=== PATIENT | female | born 1965 | race African-American/Black ===

== ENCOUNTER 2025-04-29 20:43 | Inpatient (IN) | payer MEDICAID, OTHER ==
[~2025-04-29] VITALS: Ht 165.1 cm; Wt 68.0 kg
[2025-04-29 23:20] LABS: BASOPHILS % 0.6 % (0.0-2.0); EOSINOPHILS % 0.0 % (0.0-5.0); HEMATOCRIT. 37.9 % (36.0-48.0); HEMOGLOBIN. 12.2 g/dL (12.0-16.0); LYMPHOCYTES % 7.8 % (20.0-50.0); MONOCYTES % 4.6 % (2.0-8.0); NEUTROPHILS % 87.0 % (40.0-76.0); RED BLOOD CELL COUNT 3.69 mill/uL (4.2-5.4); RED CELL DISTRIBUTION WIDTH 14.8 % (11.6-14.6)
[2025-04-29 23:32] LABS: CREATININE 2.0 mg/dL (0.6-1.0); UREA NITROGEN BLOOD 23.0 mg/dL (9-23)
[2025-04-30] MEDS: ONDANSETRON HCL 4MG/2ML INJ IV ONE (00:24)
[2025-04-30] MEDS: MORPHINE SULFATE 4 MG/ML INJ (FOR IV/IM USE) IV ONE (00:25)
[2025-04-30 01:11] LABS: PLATELET 225 x1000/uL (130-400)
[2025-04-30 01:12] LABS: MEAN PLATELET VOLUME 8.5 fl (7.4-10.4)
[2025-04-30 01:28] LABS: INR 1.0
[2025-04-30] MEDS ORDERED: DOCUSATE SODIUM 100MG CAPSULE PO PRN (01:30)
[2025-04-30] MEDS ORDERED: CLONIDINE 0.1MG TABLET PO PRN (01:30)
[2025-04-30] MEDS ORDERED: ONDANSETRON HCL 4MG/2ML INJ IV PRN ×2 (01:30→18:15)
[2025-04-30] MEDS ORDERED: ACETAMINOPHEN 325MG TABLET PO PRN ×2 (01:30)
[2025-04-30] MEDS: SODIUM CHLORIDE 0.9% 1,000 ML IV ONE (02:04)
[2025-04-30] MEDS ORDERED: NALOXONE HCL 0.4MG/ML VIAL IV PRN (02:15)
[2025-04-30] MEDS: ACETAMINOPHEN 1000MG/100ML 100 ML IV SCH (02:20)
[2025-04-30] MEDS: DEXT 5%/0.9% NACL 1,000 ML IV ONE (02:31)
[2025-04-30] MEDS ORDERED: MORPHINE SULFATE 2 MG/ML INJ (NOT FOR IM USE) IV PRN (04:15)
[2025-04-30 05:27] LABS: BASOPHILS % 0.6 % (0.0-2.0); EOSINOPHILS % 0.1 % (0.0-5.0); HEMATOCRIT. 36.7 % (36.0-48.0); HEMOGLOBIN. 12.1 g/dL (12.0-16.0); LYMPHOCYTES % 14.0 % (20.0-50.0); MEAN PLATELET VOLUME 8.2 fl (7.4-10.4); MONOCYTES % 10.5 % (2.0-8.0); NEUTROPHILS % 74.8 % (40.0-76.0); PLATELET 249 x1000/uL (130-400); RED BLOOD CELL COUNT 3.68 mill/uL (4.2-5.4); RED CELL DISTRIBUTION WIDTH 14.3 % (11.6-14.6)
[2025-04-30 05:47] LABS: CREATININE 2.3 mg/dL (0.6-1.0)
[2025-04-30 05:48] LABS: UREA NITROGEN BLOOD 29 mg/dL (9-23)
[2025-04-30 05:49] LABS: ASPARTATE AMINOTRANSFERASE 40 IU/L (<34)
[2025-04-30 05:50] LABS: BILIRUBIN TOTAL 0.5 mg/dL (0.1-1.0); PHOSPHORUS 6.5 mg/dL (2.5-4.9); PROTEIN TOTAL 7.1 g/dL (6.0-8.3)
[2025-04-30 05:51] LABS: FOLIC ACID (FOLATE) SERUM 15.20 ng/mL (>5.38)
[2025-04-30 05:52] LABS: T4 FREE 0.89 ng/dL (0.89-1.76); VITAMIN B12 SERUM 357 pg/mL (211-911)
[2025-04-30 09:00] VITALS: BP 139/75; PULSE 83; RESP 18; TEMP 36.3624
[2025-04-30] MEDS: NICOTINE 14MG PATCH TD SCH (09:00)
[2025-04-30] MEDS ORDERED: ENOXAPARIN 30MG/0.3ML SYR SUBCUT SCH (09:00)
[2025-04-30] MEDS: FAMOTIDINE 20MG/2ML VIAL IV SCH (09:22)
[2025-04-30] MEDS: HYDROMORPHONE HCL/PF 2MG/ML INJ IV PRN (09:22)
[2025-04-30 12:00] VITALS: BP 141/64; PULSE 61; RESP 18; TEMP 36.4; O2SAT 97
[2025-04-30 16:00] VITALS: BP 137/68; PULSE 57; RESP 18; TEMP 36.1; O2SAT 100
[2025-04-30 17:14] VITALS: PULSE 96; RESP 16; O2SAT 96
[2025-04-30] MEDS: IPRATROPIUM/ALBUTEROL 0.5-3(2.5)MG/3ML NEB HHN PRN (17:14)
[2025-04-30] MEDS ORDERED: VANCOMYCIN HCL 1GM VIAL ONE (17:46)
[2025-04-30] MEDS ORDERED: POLYMYXIN B SULFATE 500000 UNITS/VIAL ONE (17:46)
[2025-04-30] MEDS ORDERED: LIDOCAINE HCL/EPINEPHRINE 1%-EPI 1:100,000 20ML VIAL ONE (17:47)
[2025-04-30] MEDS: MORPHINE SULFATE 10 MG/ML INJ (NOT FOR IM USE) IV NR (17:47)
[2025-04-30] MEDS ORDERED: HYDROMORPHONE HCL/PF 1MG/ML INJ IV PRN (18:15)
[2025-04-30] MEDS ORDERED: FENTANYL CITRATE/PF 50MCG/ML 2ML VIAL IV PRN (18:15)
[2025-04-30] MEDS ORDERED: PROPOFOL 10MG/ML 100ML 100 ML IV ONE (18:28)
[2025-04-30] MEDS ORDERED: ACETAMINOPHEN 1000MG/100ML 100 ML IV ONE (18:28)
[2025-04-30] MEDS ORDERED: BUPIVACAINE HCL/DEXTROSE/PF 0.75% 2ML AMP INJ ONE (18:30)
[2025-04-30] MEDS ORDERED: FENTANYL CITRATE/PF 50MCG/ML 2ML VIAL ONE (19:05)
[2025-04-30] MEDS ORDERED: ONDANSETRON HCL 4MG/2ML INJ ONE (19:06)
[2025-04-30] MEDS ORDERED: LIDOCAINE HCL 1% 10 MG/ML 10ML VIAL ONE (20:06)
[2025-04-30] MEDS ORDERED: HYDROCODONE/ACETAMINOPHEN 5/325MG TABLET PO PRN (20:15)
[2025-04-30] MEDS ORDERED: PHENYLEPHRINE HCL 10MG/ML 1ML IV ONE (20:21)
[2025-04-30] MEDS ORDERED: MIDAZOLAM HCL 2 MG/2 ML VIAL ONE ×2 (20:22→21:24)
[2025-04-30] MEDS ORDERED: TRANEXAMIC ACID 10 ML ONE (20:24)
[2025-04-30] MEDS ORDERED: DEXAMETHASONE 4MG/ML 1ML VIAL ONE (20:35)
[2025-04-30] MEDS ORDERED: CALCIUM CHLORIDE 1GM/10ML SYR IV ONE (20:45)
[2025-05-01] VITALS: BP 104/57; PULSE 68; RESP 17; TEMP 36.2; O2SAT 97
[2025-05-01] MEDS: ONDANSETRON HCL 4MG/2ML INJ IV PRN (00:38)
[2025-05-01] MEDS: CEFAZOLIN 1000MG PREMIX 50 ML IV SCH (00:39)
[2025-05-01] MEDS: HYDROMORPHONE HCL/PF 2MG/ML INJ IV PRN (00:39)
[2025-05-01 04:00] VITALS: BP 135/61; PULSE 60; RESP 19; TEMP 36.7; O2SAT 98
[2025-05-01] MEDS ORDERED: POLYMYXIN B SULFATE 500000 UNITS/VIAL ONE (06:38)
[2025-05-01 06:47] LABS: HEMATOCRIT. 37.0 % (36.0-48.0); HEMOGLOBIN. 12.1 g/dL (12.0-16.0); MEAN PLATELET VOLUME 8.8 fl (7.4-10.4); PLATELET 215 x1000/uL (130-400); RED BLOOD CELL COUNT 3.66 mill/uL (4.2-5.4); RED CELL DISTRIBUTION WIDTH 14.2 % (11.6-14.6)
[2025-05-01 07:03] LABS: PHOSPHORUS 4.8 mg/dL (2.5-4.9)
[2025-05-01 08:00] VITALS: BP 144/70; PULSE 81; RESP 18; TEMP 36.5; O2SAT 96
[2025-05-01] MEDS ORDERED: ENOXAPARIN 40MG/0.4ML SYR SUBCUT SCH (09:00)
[2025-05-01] MEDS: ENOXAPARIN 30MG/0.3ML SYR SUBCUT SCH (09:38)
[2025-05-01 12:00] VITALS: BP 130/49; PULSE 69; RESP 17; TEMP 36.8; O2SAT 98
[2025-05-01] MEDS: CETIRIZINE 10MG TABLET PO SCH (14:45)
[2025-05-01 15:31] LABS: CLARITY URINE CLEAR (CLEAR); COLOR URINE YELLOW (YELLOW); GLUCOSE URINE NEGATIVE (NEGATIVE); KETONES URINE TRACE (NEGATIVE); LEUKOCYTE ESTERASE URINE NEGATIVE (NEGATIVE); NITRITE URINE NEGATIVE (NEGATIVE); OCCULT BLOOD URINE NEGATIVE (NEGATIVE); PH URINE 5.5 (4.5-8.0); PROTEIN URINE 1+ (NEGATIVE); SPECIFIC GRAVITY URINE 1.029 (1.005-1.030); UROBILINOGEN URINE 0.2 E.U./dL (0.2-1.0)
[2025-05-01 15:42] LABS: *AMPHETAMINES SCREEN URINE NEGATIVE (NEGATIVE); *BARBITURATES SCREEN URINE NEGATIVE (NEGATIVE); *BENZODIAZEPINES SCREEN URINE PRESUMPTIVE POSITIVE (NEGATIVE); *COCAINE SCREEN URINE PRESUMPTIVE POSITIVE (NEGATIVE)
[2025-05-01 15:43] LABS: CANNABINOID URINE SCREEN NEGATIVE (NEGATIVE); ECSTASY MDMA SCREEN URINE NEGATIVE (NEGATIVE); METHADONE URINE SCREEN NEGATIVE (NEGATIVE); OPIATES URINE SCREEN PRESUMPTIVE POSITIVE (NEGATIVE); PHENCYCLIDINE URINE SCREEN NEGATIVE (NEGATIVE)
[2025-05-01 16:00] VITALS: BP 107/49; PULSE 67; RESP 17; TEMP 36.7; O2SAT 98
[2025-05-01 16:23] LABS: RBC URINE NONE SEEN /hpf (0-2); WBC URINE NONE SEEN /hpf (0-2)
[2025-05-01 16:24] LABS: BACTERIA URINE NONE SEEN; MUCUS URINE TRACE /lpf (< = 2+); SQUAMOUS EPITHELIAL CELL URINE RARE /lpf (RARE/1+)
[2025-05-01 16:46] LABS: TRIGLYCERIDE 187.0 mg/dL (0-150)
[2025-05-01 16:47] LABS: LDL CHOLESTEROL 201.0 mg/dL (5-100)
[2025-05-01] MEDS: THIAMINE HCL 100MG TABLET PO SCH (17:23)
[2025-05-01] MEDS: FOLIC ACID 1MG TABLET PO SCH (17:23)
[2025-05-01] MEDS: HYDROCODONE/ACETAMINOPHEN 5/325MG TABLET PO PRN (17:27)
[2025-05-01] MEDS: SODIUM CHLORIDE 0.9% 1,000 ML IV SCH (17:30)
[2025-05-01 20:00] VITALS: BP 111/60; PULSE 70; RESP 18; TEMP 37.2; O2SAT 100
[2025-05-01 21:22] LABS: LYMPHOCYTES % MANUAL 8.0 % (20.0-60.0); MONOCYTES % MANUAL 7.0 % (2.0-8.0); NEUTROPHILS % MANUAL 85.0 % (45.0-75.0); PLATELET ESTIMATE NORMAL
[2025-05-02 05:49] LABS: CREATININE 0.9 mg/dL (0.6-1.0)
[2025-05-02 05:50] LABS: PROTEIN TOTAL 6.6 g/dL (6.0-8.3); UREA NITROGEN BLOOD 19 mg/dL (9-23)
[2025-05-02 05:51] LABS: ASPARTATE AMINOTRANSFERASE 18 IU/L (<34)
[2025-05-02 05:52] LABS: BILIRUBIN DIRECT < 0.1 mg/dL (<=3.0); BILIRUBIN TOTAL 0.3 mg/dL (0.1-1.0); PHOSPHORUS 2.6 mg/dL (2.5-4.9)
[2025-05-02 05:54] LABS: BASOPHILS % 0.3 % (0.0-2.0); EOSINOPHILS % 0.9 % (0.0-5.0); HEMATOCRIT. 34.6 % (36.0-48.0); HEMOGLOBIN. 11.2 g/dL (12.0-16.0); LYMPHOCYTES % 10.3 % (20.0-50.0); MEAN PLATELET VOLUME 8.8 fl (7.4-10.4); MONOCYTES % 12.0 % (2.0-8.0); NEUTROPHILS % 76.5 % (40.0-76.0); PLATELET 195 x1000/uL (130-400); RED BLOOD CELL COUNT 3.40 mill/uL (4.2-5.4); RED CELL DISTRIBUTION WIDTH 14.2 % (11.6-14.6)
[2025-05-02 08:00] VITALS: BP 128/70; PULSE 93; RESP 20; TEMP 37; O2SAT 100
[2025-05-02 12:00] VITALS: BP 122/68; PULSE 79; RESP 18; TEMP 36.9; O2SAT 94
[2025-05-02 16:00] VITALS: BP 115/71; PULSE 99; RESP 18; TEMP 37.1; O2SAT 98
[2025-05-02] MEDS: CYANOCOBALAMIN 1000MCG/ML VIAL IM SCH (17:40)
[2025-05-02 20:00] VITALS: BP 116/73; PULSE 81; RESP 17; TEMP 36.4; O2SAT 100
[2025-05-02] MEDS: ATORVASTATIN CALCIUM 40MG TABLET PO SCH (21:07)
[2025-05-03] VITALS: BP_SYST 102; BP_SYST 128; BP_DIAS 63; BP_DIAS 70; PULSE 71; PULSE 82; RESP 18; RESP 20; TEMP 36.4; TEMP 36.7; O2SAT 97; O2SAT 99
[2025-05-03 04:00] VITALS: BP 102/63; PULSE 82; RESP 18; TEMP 36.4; O2SAT 99
[2025-05-03 05:42] LABS: BASOPHILS % 0.1 % (0.0-2.0); EOSINOPHILS % 2.4 % (0.0-5.0); HEMATOCRIT. 35.5 % (36.0-48.0); HEMOGLOBIN. 11.5 g/dL (12.0-16.0); LYMPHOCYTES % 14.8 % (20.0-50.0); MEAN PLATELET VOLUME 8.9 fl (7.4-10.4); MONOCYTES % 13.0 % (2.0-8.0); NEUTROPHILS % 69.7 % (40.0-76.0); PLATELET 221 x1000/uL (130-400); RED BLOOD CELL COUNT 3.51 mill/uL (4.2-5.4); RED CELL DISTRIBUTION WIDTH 14.3 % (11.6-14.6)
[2025-05-03 06:13] LABS: CREATININE 1.0 mg/dL (0.6-1.0)
[2025-05-03 06:14] LABS: UREA NITROGEN BLOOD 17 mg/dL (9-23)
[2025-05-03 06:16] LABS: PHOSPHORUS 2.4 mg/dL (2.5-4.9)
[2025-05-03 08:00] VITALS: BP 98/61; PULSE 79; RESP 18; TEMP 36.7; O2SAT 97
[2025-05-03] MEDS: SODIUM PHOSPHATE 15 MMOL in DEXT 5% WATER 245 ML IV SCH (09:55)
[2025-05-03 12:00] VITALS: BP 116/70; PULSE 82; RESP 18; TEMP 36.6; O2SAT 18
[2025-05-03 16:00] VITALS: BP 110/65; PULSE 82; RESP 17; TEMP 36.6; O2SAT 18
[2025-05-03 20:00] VITALS: BP 115/66; PULSE 98; RESP 17; TEMP 35.8; O2SAT 97
[2025-05-04 04:00] VITALS: BP 122/73; PULSE 107; RESP 17; TEMP 36.1; O2SAT 98
[2025-05-04 08:00] VITALS: BP 103/63; PULSE 72; RESP 18; TEMP 36.5; O2SAT 96
[2025-05-04 12:00] VITALS: BP 110/70; PULSE 81; RESP 18; TEMP 36.6; O2SAT 96
[2025-05-04 16:00] VITALS: BP 112/70; PULSE 74; RESP 18; TEMP 36.6; O2SAT 96
[2025-05-04 20:00] VITALS: BP 111/68; PULSE 91; RESP 18; TEMP 36.6; O2SAT 98
[2025-05-04 21:40] VITALS: BP 111/68; PULSE 91; RESP 18; TEMP 36.6; O2SAT 98
[2025-05-05] VITALS: BP 100/62; PULSE 93; RESP 18; TEMP 36.7; O2SAT 98
[2025-05-05 04:00] VITALS: BP 107/63; PULSE 94; RESP 18; TEMP 36.6; O2SAT 97
[2025-05-05 08:00] VITALS: BP 111/66; PULSE 89; RESP 20; TEMP 36.3; O2SAT 97
[2025-05-05 12:00] VITALS: BP 108/68; PULSE 86; RESP 20; TEMP 36.4; O2SAT 99
[2025-05-05 16:00] VITALS: BP 95/55; PULSE 83; RESP 20; TEMP 36.3; O2SAT 100
[2025-05-05 20:00] VITALS: BP 109/63; PULSE 60; RESP 17; TEMP 36.2; O2SAT 98
[2025-05-05] MEDS: QUETIAPINE FUMARATE 200MG TABLET PO SCH (20:45)
[2025-05-05] MEDS: HYDROCODONE/ACETAMINOPHEN 10/325MG TABLET PO PRN (21:45)
[2025-05-06] VITALS: BP 138/65; PULSE 77; RESP 20; TEMP 36.3; O2SAT 100
[2025-05-06 08:00] VITALS: BP 106/62; PULSE 84; RESP 17; TEMP 36.5; O2SAT 98
[2025-05-06 09:22] LABS: BASOPHILS % 0.4 % (0.0-2.0); EOSINOPHILS % 4.0 % (0.0-5.0); HEMATOCRIT. 30.3 % (36.0-48.0); HEMOGLOBIN. 9.7 g/dL (12.0-16.0); LYMPHOCYTES % 19.7 % (20.0-50.0); MEAN PLATELET VOLUME 8.2 fl (7.4-10.4); MONOCYTES % 14.2 % (2.0-8.0); NEUTROPHILS % 61.7 % (40.0-76.0); PLATELET 294 x1000/uL (130-400); RED BLOOD CELL COUNT 2.98 mill/uL (4.2-5.4); RED CELL DISTRIBUTION WIDTH 14.0 % (11.6-14.6)
[2025-05-06 09:43] LABS: CREATININE 0.7 mg/dL (0.6-1.0)
[2025-05-06 09:44] LABS: UREA NITROGEN BLOOD 14 mg/dL (9-23)
[2025-05-06 09:46] LABS: PHOSPHORUS 3.5 mg/dL (2.5-4.9)
[2025-05-06 12:00] VITALS: BP 115/69; PULSE 79; RESP 18; TEMP 36.6; O2SAT 100
[2025-05-06 16:00] VITALS: BP 123/71; PULSE 88; RESP 17; TEMP 36.7; O2SAT 100
[2025-05-06 20:00] VITALS: BP 142/84; PULSE 99; RESP 18; TEMP 36.6; O2SAT 98
[2025-05-07] VITALS (7 sets, daily range): BP systolic 95–133; BP diastolic 52–76; PULSE 72–105; RESP 18–19; TEMP 36.3–36.9; O2SAT 95–99
[2025-05-08] VITALS: BP 121/69; PULSE 86; RESP 18; TEMP 36.6; O2SAT 100
[2025-05-08 04:00] VITALS: BP 115/69; PULSE 97; RESP 18; TEMP 36.7; O2SAT 100
[2025-05-08 08:00] VITALS: BP 127/76; PULSE 89; RESP 18; TEMP 36.4; O2SAT 100
[2025-05-08 12:00] VITALS: BP 121/73; PULSE 90; RESP 18; TEMP 36.6; O2SAT 98
[2025-05-08] MEDS ORDERED: NALOXONE HCL 0.4MG/ML VIAL IV PRN (13:45)
[2025-05-08 16:00] VITALS: BP 130/64; PULSE 83; RESP 21; TEMP 36.8; O2SAT 100
[2025-05-08 20:00] VITALS: BP 130/79; PULSE 100; RESP 18; TEMP 36.4; O2SAT 99
[2025-05-09 04:00] VITALS: BP 119/78; PULSE 99; RESP 20; TEMP 36.4; O2SAT 97
[2025-05-09 08:00] VITALS: BP 122/72; PULSE 90; RESP 18; TEMP 36.6; O2SAT 97
[2025-05-09] MEDS: KETOROLAC 15MG/ML VIAL IV PRN (11:20)
[2025-05-09 12:00] VITALS: BP 107/60; PULSE 82; RESP 18; TEMP 37.6; O2SAT 96
[2025-05-09 16:00] VITALS: BP 123/72; PULSE 91; RESP 18; TEMP 37; O2SAT 95
[2025-05-09 20:00] VITALS: BP 98/57; PULSE 89; RESP 16; TEMP 36.9; O2SAT 96
[2025-05-09] MEDS: GUAIFENESIN 200MG/10ML SUGAR FREE UDC PO PRN (22:11)
[2025-05-10] VITALS: BP 113/67; PULSE 88; RESP 15; TEMP 36.6; O2SAT 95
[2025-05-10 04:00] VITALS: BP 108/70; PULSE 80; RESP 16; TEMP 36.7; O2SAT 97
[2025-05-10 08:00] VITALS: BP 98/61; PULSE 84; RESP 16; TEMP 36.5; O2SAT 96
[2025-05-10] MEDS ORDERED: FOLI-43 PO (11:28)
[2025-05-10] MEDS ORDERED: THIA100T72 PO (11:28)
[2025-05-10] MEDS ORDERED: QUET200T30 PO (11:28)
[2025-05-10] MEDS ORDERED: LIP40 PO (11:28)
[2025-05-10 12:00] VITALS: BP 113/69; PULSE 86; RESP 16; TEMP 36.5; O2SAT 96
[2025-05-10 12:26] VITALS: BP 113/69; PULSE 86; RESP 18; TEMP 97.7
[2025-05-10 16:00] VITALS: BP 110/73; PULSE 85; RESP 16; TEMP 36.6; O2SAT 96
== END 2025-05-10 16:15 | DRG 308 ==
LOC: ER 20:43 → 6EST 04-30 00:28 → EDBEDREQTM 04-30 00:59 → EDBEDREQ 04-30 00:59 → EDBEDREQDT 04-30 00:59 → ENRESERV 04-30 07:25 → UNDODISIN 05-10 13:00
PROVIDERS: ADMIT Hospitalist; ATTEND Hospitalist
PROC: 0QSB36Z Reposition Right Lower Femur with Intramedullary Internal Fixation Device, Percutaneous Approach (ICD-10-PCS; principal; 2025-04-30)
DX: S72.451A Displaced supracondylar fracture without intracondylar extension of lower end of right femur, initial encounter for closed fracture (principal); G62.1 Alcoholic polyneuropathy; I13.0 Hypertensive heart and chronic kidney disease with heart failure and stage 1 through stage 4 chronic kidney disease, or unspecified chronic kidney disease; I50.9 Heart failure, unspecified; N17.9 Acute kidney failure, unspecified; J44.9 Chronic obstructive pulmonary disease, unspecified; F31.9 Bipolar disorder, unspecified; F14.10 Cocaine abuse, uncomplicated; M06.9 Rheumatoid arthritis, unspecified; D64.9 Anemia, unspecified; N18.9 Chronic kidney disease, unspecified; K57.30 Diverticulosis of large intestine without perforation or abscess without bleeding; F17.210 Nicotine dependence, cigarettes, uncomplicated; D75.89 Other specified diseases of blood and blood-forming organs; D72.829 Elevated white blood cell count, unspecified; W18.2XXA Fall in (into) shower or empty bathtub, initial encounter; E78.5 Hyperlipidemia, unspecified; Y92.89 Other specified places as the place of occurrence of the external cause; Y99.8 Other external cause status; F10.10 Alcohol abuse, uncomplicated; D25.9 Leiomyoma of uterus, unspecified; Y90.0 Blood alcohol level of less than 20 mg/100 ml; J98.11 Atelectasis; Y93.E1 Activity, personal bathing and showering; Z79.899 Other long term (current) drug therapy; Z82.49 Family history of ischemic heart disease and other diseases of the circulatory system; Z99.81 Dependence on supplemental oxygen; R73.9 Hyperglycemia, unspecified
CPT/HCPCS: 36415; 71045; 72192; 73502; 73551; 73552; 73562; 73700; 76000; 76770; 80048; 80053; 80061; 80076; 80305; 80320; 81003; 82550; 82607; 82746; 82962; 83036; 83735; 83880; 84100; 84439; 84443; 85025; 86850; 86900; 93005; 93306; 93970; 94640; 94664; 96374; 96375; 97110; 97116; 97162; 97166; 97530; 97535; 97542; 99285; A4606; A4615; J0690; J1100; J1171; J1308; J1650; J1885; J2003; J2004; J2250; J2270; J2371; J2405; J2704; J3010; J3373; J3420; J3490; J7030; J7060; C1713; C1769; G0480; J0131